=== PATIENT | female | born 1935 | race Caucasian/White ===

== ENCOUNTER → 2016-06-25 | Outpatient (CLI) | payer MEDICARE | END | disposition home or self-care (01) | LOC: CPPFTMAIN 11:37 | PROVIDERS: ATTEND Internal Medicine Clinical Cardiac Electrophysiology | DX: R06.02 Shortness of breath (principal); Z79.899 Other long term (current) drug therapy | CPT/HCPCS: 94060; 94726; 94729 ==

== ENCOUNTER 2017-09-10 11:19 | Emergency (ER) | payer MEDICARE ==
[2017-09-10] MEDS ORDERED: ASPIRIN 81 MG PO STA (11:25)
[2017-09-10] MEDS ORDERED: MORPHINE SULFATE/PF 10MG/10ML VL IVP STA (11:25)
[2017-09-10] MEDS ORDERED: ONDANSETRON 4 MG/2 ML VIAL IVP STA (11:25)
[2017-09-10] MEDS ORDERED: SODIUM CHLORIDE 0.9% 1,000 ML IV STA (11:25)
[2017-09-10] MEDS ORDERED: NITROGLYCERIN OINT 1 INCH/GM PACKET TOPICAL STA (11:25)
[2017-09-10 11:29] VITALS: RESP 18
[2017-09-10 11:42] LABS: Basophils % (A) 1 %; Eosinophils # (A) 0.1 k/uL (0-0.7); Eosinophils % (A) 2 %; HCT 33.7 % (34.0-46.0); HGB 11.4 gm/dL (11.4-16.0); Lymphocytes # (A) 1.1 k/uL (1.0-4.8); Lymphocytes % (A) 23 %; MCH 31.2 pg (25.0-35.0); MCHC 33.7 g/dL (31.0-37.0); MCV 92.5 fL (80.0-100.0); Mean Platelet Volume 7.1; Monocytes # (A) 0.4 k/uL (0-1.0); Monocytes % (A) 8 %; Neutrophils # (A) 3.3 k/uL (1.3-7.7); Neutrophils % (A) 64 %; Platelet Count 258 k/uL (150-450); RBC 3.64 m/uL (3.80-5.40); RDW 12.4 % (11.5-15.5); WBC 5.1 k/uL (3.8-10.6)
[2017-09-10 11:51] LABS: INR 1.1 (<1.2); Partial Thromboplastin Time 25.7 sec (22.0-30.0); Prothrombin Time 10.7 sec (9.0-12.0)
--- NOTE | 2017-09-10 11:53 | XR ---
EXAMINATION TYPE: XR chest 2V DATE OF EXAM: 09/10/2017 COMPARISON: 06/15/2016 HISTORY: Dizziness, shortness of breath, and weakness TECHNIQUE: Frontal and lateral views of the chest are obtained. FINDINGS: There is no focal air space opacity, pleural effusion, or pneumothorax seen. Right hemidia phragm eventration is incidentally noted. There is pulmonary hyperinflation and biapical lucency comp atible with underlying COPD. Platelike left basilar subsegmental atelectasis is seen. Remainder the l ungs are clear. The cardiac silhouette size is within normal limits. The osseous structures are int act. Cardiac loop recorder is incidentally noted. Mild multilevel degenerative changes of the thoraci c spine and diffuse osseous demineralization are seen. Degenerative changes of the left lateral humer al joint and acromio clavicular joints are mild. IMPRESSION: Left basilar subsegmental atelectasis. No other acute cardiopulmonary process. Radiograp hic sequela of COPD.
[2017-09-10 11:57] LABS: Albumin 3.6 g/dL (3.5-5.0); Calcium 8.8 mg/dL (8.4-10.2); Potassium 4.9 mmol/L (3.5-5.1); Total Bilirubin 0.4 mg/dL (0.2-1.3); Total Protein 6.3 g/dL (6.3-8.2)
[2017-09-10 12:04] LABS: Creatine Kinase 295 U/L (30-135)
[2017-09-10 12:17] LABS: Troponin I <0.012 ng/mL (0.000-0.034)
--- NOTE | 2017-09-10 15:40 | ED ---
Chest Pain HPI - General Chief Complaint: Chest Pain Stated Complaint: chest pain Time Seen by Provider: 09/10/17 11:22 Source: EMS Mode of arrival: EMS Limitations: no limitations - History of Present Illness Initial Comments: 82 years old female comes in with a chest pain, she woke up this morning she was fine she had her breakfast then she developed chest pain this pain lasted for good 45 minutes it's behind the left shoulder but then he moved to to the area behind the left breast she was quite short winded at that time she was swelling and pain is quite severe on arrival pain has resolved to the largest extent pain radiating there was a / denies any pleuritic chest pain and she is on a blood thinners she said she is on blood thinners. He denies any headaches no neck stiffness no abdominal pain no frequency urgency dysuria no signs of TIA or CVA - Related Data Home Medications Medication Instructions Recorded Confirmed Cetirizine HCl [Zyrtec] 10 mg PO DAILY@0900 02/01/15 09/10/17 Lisinopril [Prinivil] 20 mg PO DAILY@1200 02/01/15 09/10/17 Rivaroxaban [Xarelto] 20 mg PO DAILY@1800 02/01/15 09/10/17 Amiodarone [Cordarone] 100 mg PO DAILY@0900 03/20/15 09/10/17 Atorvastatin [Lipitor] 40 mg PO DAILY@1800 06/27/15 09/10/17 Metoprolol Succinate (ER) [Toprol 25 mg PO BID@0600,1800 06/15/16 09/10/17 Xl] Aspirin EC [Ecotrin Low Dose] 81 mg PO DAILY@0900 09/10/17 09/10/17 Calcium Carbonate/Vitamin D3 1 tab PO DAILY@0900 09/10/17 09/10/17 [Calcium 600-Vit D3 400 Tablet] Losartan Potassium [Cozaar] 50 mg PO HS@199909/10/17 09/10/17 Vit C/E/Zn/Coppr/Lutein/Zeaxan 1 cap PO BID@0900,1800 09/10/17 09/10/17 [Preservision Areds 2 Softgel] Allergies Allergy/AdvReac Type Severity Reaction Status Date / Time ibuprofen AdvReac stomach Verified 09/10/17 11:46 upset Review of Systems ROS Statement: Those systems with pertinent positive or pertinent negative responses have been documented in the HPI. ROS Other: All systems not noted in ROS Statement are negative. EKG Findings - EKG Comments: EKG Findings:: EKG is normal sinus rhythm ventricular rate is 60 MT interval is 206 QT QRS duration is 92 QT/QTc is 438/438 review of this EKG does not reveal any ST elevation or ST depression noticed some artifacts in lead V6 Past Medical History Past Medical History: Atrial Fibrillation, Hyperlipidemia, Hypertension Additional Past Medical History / Comment(s): SEE DR MONAE'S H&P History of Any Multi-Drug Resistant Organisms: None Reported Past Surgical History: Heart Catheterization, Hysterectomy Additional Past Surgical History / Comment(s): JÚNIOR CATARACTS, JÚNIOR EYELID SX, Past Anesthesia/Blood Transfusion Reactions: No Reported Reaction Additional Past Anesthesia/Blood Transfusion Reaction / Comment(s): Pt has never recieved blood. Past Psychological History: No Psychological Hx Reported Smoking Status: Former smoker Past Alcohol Use History: None Reported Past Drug Use History: None Reported - Past Family History Mother Additional Family Medical History / Comment(s): CARDIAC PROBLEMS Father Additional Family Medical History / Comment(s): CARDIAC PROBLEMS General Exam - General Exam Comments Initial Comments: General: The patient is awake and alert, in no distress, and does not appear acutely ill. Skin: Skin is warm and dry and no rashes or lesions are noted. Eye: Pupils are equal, round and reactive to light, extra-ocular movements are intact; there is normal conjunctiva bilaterally. Ears, nose, mouth and throat: There are moist mucous membranes and no oral lesions. Neck: The neck is supple, there is no tenderness or JVD. Cardiovascular: There is a regular rate and rhythm. No murmur, rub or gallop is appreciated. Respiratory: To auscultation bilateral, exam consistent with a mild COPD Gastrointestinal: Soft, non-distended, non-tender abdomen without masses or organomegaly noted. There is no rebound or guarding present. Bowel sounds are unremarkable. Back: There is no tenderness to palpation in the midline. There is no obvious deformity. Musculoskeletal: Normal ROM, no tenderness, There is no pedal edema. There is no calf tenderness or swelling. No cords were appreciated. Neurological: CN II-XII intact, Cranial nerves III through XII are intact. There are no obvious motor or sensory deficits. Coordination appears grossly intact. Speech is normal. Psychiatric: Cooperative, appropriate mood & affect, normal judgment. Limitations: no limitations Course Vital Signs 09/10/17 09/10/17 09/10/17 11:22 12:01 13:12 Temperature 97.8 F Pulse Rate 62 52 L 56 L Respiratory 18 18 18 Rate Blood Pressure 177/79 142/68 113/59 O2 Sat by Pulse 96 97 98 Oximetry 09/10/17 14:39 Temperature Pulse Rate 57 L Respiratory 18 Rate Blood Pressure 122/59 O2 Sat by Pulse 96 Oximetry She is reassessed, reassessed she is pain-free EKG, troponin, compressive metabolic panel, CBC are unremarkable chest x-rays consistent with a COPD considering this is 82 and quite a few risk factors were discussed with Dr. Rojas, Dr. Rojas advised that she could follow-up with him as outpatient Disposition Clinical Impression: Chest pain Disposition: HOME SELF-CARE Condition: Good Instructions: Chest Pain (ED) Referrals: Rowdy Rojas MD [Primary Care Provider] - 1-2 days
[2017-09-10] MEDS ORDERED: LISINOPRIL 20 MG TAB PO STA (15:53)
[2017-09-10 16:06] VITALS: BP 126/70; PULSE 59; TEMP 97
== END 2017-09-10 16:28 | disposition home or self-care (01) ==
LOC: EC 11:19
DX: R07.9 Chest pain, unspecified (principal); I48.91 Unspecified atrial fibrillation; E78.5 Hyperlipidemia, unspecified; I10 Essential (primary) hypertension; Z95.818 Presence of other cardiac implants and grafts; Z87.891 Personal history of nicotine dependence; Z79.82 Long term (current) use of aspirin; Z79.899 Other long term (current) drug therapy; Z79.01 Long term (current) use of anticoagulants; Z88.6 Allergy status to analgesic agent; Z53.8 Procedure and treatment not carried out for other reasons
CPT/HCPCS: 36415; 71046; 80053; 82550; 82553; 83735; 84484; 85025; 85610; 85730; 93005; 96360; 96361; 99285

== ENCOUNTER 2017-10-06 10:20 | Emergency (ER) | payer MEDICARE ==
[2017-10-06 10:25] VITALS: TEMP 97.1
[2017-10-06] MEDS ORDERED: SODIUM CHLORIDE 0.9% 500 ML IV STA (10:49)
--- NOTE | 2017-10-06 11:19 | ED ---
General Adult HPI - General Chief complaint: Dizziness Stated complaint: A FIB problem Time Seen by Provider: 10/06/17 10:48 Source: patient, RN notes reviewed, old records reviewed Mode of arrival: wheelchair Limitations: physical limitation - History of Present Illness Initial comments: 82-year-old female presenting with light headedness, and seeing stars in her left thigh. Patient felt generally weak, no focal weakness or numbness. She states she saw some around a low-dose only in her left eye. She does have history of retinal occlusion, she sees a retinal specialist. She has been told in the past that she has had TIAs. She denies any chest pain with this episode , she did have some dyspnea. No abdominal pain or vomiting. Mild nausea. She did not eat breakfast today. Prior to today she was doing well, eating and drinking normally. Her visual symptoms are resolved at the time my evaluation. Denies focal weakness or numbness. - Related Data Home Medications Medication Instructions Recorded Confirmed Cetirizine HCl [Zyrtec] 10 mg PO -BRKFST 02/01/15 10/06/17 Lisinopril [Prinivil] 20 mg PO DAILY@1200 02/01/15 10/06/17 Rivaroxaban [Xarelto] 20 mg PO DAILY@1800 02/01/15 10/06/17 Amiodarone [Cordarone] 100 mg PO -BRKFST 03/20/15 10/06/17 Atorvastatin [Lipitor] 40 mg PO DAILY@1800 06/27/15 10/06/17 Metoprolol Succinate (ER) [Toprol 25 mg PO BID@0600,1800 06/15/16 10/06/17 Xl] Aspirin EC [Ecotrin Low Dose] 81 mg PO AC-BRKFST 09/10/17 10/06/17 Calcium Carbonate/Vitamin D3 1 tab PO Q48H 09/10/17 10/06/17 [Calcium 600-Vit D3 400 Tablet] Losartan Potassium [Cozaar] 50 mg PO HS@199909/10/17 10/06/17 Vit C/E/Zn/Coppr/Lutein/Zeaxan 1 cap PO BID@0800,1800 09/10/17 10/06/17 [Preservision Areds 2 Softgel] Cephalexin [Keflex] 500 mg PO TID@06,14,10/06/17 10/06/17 Allergies Allergy/AdvReac Type Severity Reaction Status Date / Time adhesive tape AdvReac Rash/Hives Verified 10/06/17 11:45 ibuprofen AdvReac stomach Verified 10/06/17 11:45 upset Review of Systems ROS Statement: Those systems with pertinent positive or pertinent negative responses have been documented in the HPI. ROS Other: All systems not noted in ROS Statement are negative. Past Medical History Past Medical History: Atrial Fibrillation, Hyperlipidemia, Hypertension Additional Past Medical History / Comment(s): SEE DR MONAE'S H&P History of Any Multi-Drug Resistant Organisms: None Reported Past Surgical History: Heart Catheterization, Hysterectomy Additional Past Surgical History / Comment(s): JÚNIOR CATARACTS, JÚNIOR EYELID SX, Past Anesthesia/Blood Transfusion Reactions: No Reported Reaction Additional Past Anesthesia/Blood Transfusion Reaction / Comment(s): Pt has never recieved blood. Past Psychological History: No Psychological Hx Reported Smoking Status: Former smoker Past Alcohol Use History: None Reported Past Drug Use History: None Reported - Past Family History Mother Additional Family Medical History / Comment(s): CARDIAC PROBLEMS Father Additional Family Medical History / Comment(s): CARDIAC PROBLEMS General Exam Limitations: physical limitation General appearance: alert, in no apparent distress Head exam: Present: atraumatic, normocephalic Eye exam: Present: normal appearance, PERRL, EOMI ENT exam: Present: mucous membranes dry Neck exam: Present: normal inspection. Absent: tenderness, meningismus Respiratory exam: Present: normal lung sounds bilaterally. Absent: respiratory distress, wheezes Cardiovascular Exam: Present: regular rate, normal rhythm Extremities exam: Present: normal inspection, normal capillary refill. Absent: pedal edema, calf tenderness Neurological exam: Present: alert, oriented X3, CN II-XII intact. Absent: motor sensory deficit Psychiatric exam: Present: normal affect, normal mood Skin exam: Present: warm, dry, intact. Absent: cyanosis, diaphoretic Course Vital Signs 10/06/17 10/06/17 10/06/17 10:22 11:01 12:00 Temperature 97.1 F L Pulse Rate 74 66 67 Respiratory 18 16 16 Rate Blood Pressure 124/69 154/74 136/73 O2 Sat by Pulse 99 97 97 Oximetry 10/06/17 10/06/17 12:48 14:01 Temperature Pulse Rate 68 71 Respiratory 16 18 Rate Blood Pressure 156/72 124/59 O2 Sat by Pulse 100 99 Oximetry EKG Findings - EKG Comments: EKG Findings:: EKG: Normal sinus rhythm, ventricular rate 61, KY interval 192, QRS duration 86, QTC 426, no ST segment elevation Medical Decision Making - Medical Decision Making 82-year-old female presenting with multiple complaints including vision changes in her left eye, dyspnea, and concern she is in A. fib. 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 Patient does follow with a retinal specialist. She hasn't appointment in approximately one week. Her visual symptoms have completely resolved prior to arrival. Vitals remained stable, she remains in normal sinus rhythm. Laboratory studies reveal normal CBC, electrolytes do reveal potassium of 5.8. This is repeated and is 4.4 without treatment. Case is discussed with the patient's primary care physician Dr. Rojas who is very familiar with the patient, he is okay with outpatient workup. I did discuss findings with the patient's nurse from her cardiology office Dr. Erickson [place] office. She is also comfortable with outpatient follow-up. Patient will maintain her appointment with her retinal specialist, she will follow-up with her primary care physician in the next several days. Her symptoms remained resolved while in the emergency department. Both her and her are comfortable with this plan. - Lab Data Result diagrams: 10/06/17 11:00 10/06/17 14:18 Lab Results 10/06/17 10/06/17 10/06/17 Range/Units 11:00 11:00 11:00 WBC 6.8 (3.8-10.6) k/uL RBC 4.06 (3.80-5.40) m/uL Hgb 12.5 (11.4-16.0) gm/dL Hct 37.6 (34.0-46.0) % MCV 92.7 (80.0-100.0) fL MCH 30.9 (25.0-35.0) pg MCHC 33.4 (31.0-37.0) g/dL RDW 12.5 (11.5-15.5) % Plt Count 299 (150-450) k/uL Neutrophils % 76 % Lymphocytes % 13 % Monocytes % 9 % Eosinophils % 1 % Basophils % 0 % Neutrophils # 5.2 (1.3-7.7) k/uL Lymphocytes # 0.9 L (1.0-4.8) k/uL Monocytes # 0.6 (0-1.0) k/uL Eosinophils # 0.0 (0-0.7) k/uL Basophils # 0.0 (0-0.2) k/uL PT (9.0-12.0) sec INR (<1.2) APTT (22.0-30.0) sec Sodium 137 (137-145) mmol/L Potassium 5.8 H (3.5-5.1) mmol/L Chloride 103 (98-107) mmol/L Carbon Dioxide 23 (22-30) mmol/L Anion Gap 11 mmol/L BUN 18 H (7-17) mg/dL Creatinine 0.80 (0.52-1.04) mg/dL Est GFR (CKD-EPI)AfAm 79 (>60 ml/min/1.73 sqM) Est GFR (CKD-EPI)NonAf 69 (>60 ml/min/1.73 sqM) Glucose 107 H (74-99) mg/dL Calcium 9.9 (8.4-10.2) mg/dL Magnesium 2.1 (1.6-2.3) mg/dL Total Bilirubin 0.4 (0.2-1.3) mg/dL AST 29 (14-36) U/L ALT 32 (9-52) U/L Alkaline Phosphatase 76 (38-126) U/L Total Creatine Kinase 116 (30-135) U/L CK-MB (CK-2) 2.2 (0.0-2.4) ng/mL CK-MB (CK-2) Rel Index 1.9 Troponin I <0.012 (0.000-0.034) ng/mL Total Protein 6.8 (6.3-8.2) g/dL Albumin 3.9 (3.5-5.0) g/dL 10/06/17 10/06/17 Range/Units 11:00 14:18 WBC (3.8-10.6) k/uL RBC (3.80-5.40) m/uL Hgb (11.4-16.0) gm/dL Hct (34.0-46.0) % MCV (80.0-100.0) fL MCH (25.0-35.0) pg MCHC (31.0-37.0) g/dL RDW (11.5-15.5) % Plt Count (150-450) k/uL Neutrophils % % Lymphocytes % % Monocytes % % Eosinophils % % Basophils % % Neutrophils # (1.3-7.7) k/uL Lymphocytes # (1.0-4.8) k/uL Monocytes # (0-1.0) k/uL Eosinophils # (0-0.7) k/uL Basophils # (0-0.2) k/uL PT 10.7 (9.0-12.0) sec INR 1.1 (<1.2) APTT 25.1 (22.0-30.0) sec Sodium (137-145) mmol/L Potassium 4.4 (3.5-5.1) mmol/L Chloride (98-107) mmol/L Carbon Dioxide (22-30) mmol/L Anion Gap mmol/L BUN (7-17) mg/dL Creatinine (0.52-1.04) mg/dL Est GFR (CKD-EPI)AfAm (>60 ml/min/1.73 sqM) Est GFR (CKD-EPI)NonAf (>60 ml/min/1.73 sqM) Glucose (74-99) mg/dL Calcium (8.4-10.2) mg/dL Magnesium (1.6-2.3) mg/dL Total Bilirubin (0.2-1.3) mg/dL AST (14-36) U/L ALT (9-52) U/L Alkaline Phosphatase (38-126) U/L Total Creatine Kinase (30-135) U/L CK-MB (CK-2) (0.0-2.4) ng/mL CK-MB (CK-2) Rel Index Troponin I (0.000-0.034) ng/mL Total Protein (6.3-8.2) g/dL Albumin (3.5-5.0) g/dL Disposition Clinical Impression: Orthostatic hypotension Disposition: HOME SELF-CARE Condition: Fair Instructions: Hypotension (ED) Is patient prescribed a controlled substance at discharge?: No Referrals: Rowdy Rojas MD [Primary Care Provider] - 1-2 days Time of Disposition: 14:30
[2017-10-06 11:20] LABS: INR 1.1 (<1.2); Partial Thromboplastin Time 25.1 sec (22.0-30.0); Prothrombin Time 10.7 sec (9.0-12.0)
[2017-10-06 11:22] LABS: Basophils % (A) 0 %; Eosinophils % (A) 1 %; HCT 37.6 % (34.0-46.0); HGB 12.5 gm/dL (11.4-16.0); Lymphocytes # (A) 0.9 k/uL (1.0-4.8); Lymphocytes % (A) 13 %; MCH 30.9 pg (25.0-35.0); MCHC 33.4 g/dL (31.0-37.0); MCV 92.7 fL (80.0-100.0); Mean Platelet Volume 7.2; Monocytes # (A) 0.6 k/uL (0-1.0); Monocytes % (A) 9 %; Neutrophils # (A) 5.2 k/uL (1.3-7.7); Neutrophils % (A) 76 %; Platelet Count 299 k/uL (150-450); RBC 4.06 m/uL (3.80-5.40); RDW 12.5 % (11.5-15.5); WBC 6.8 k/uL (3.8-10.6)
[2017-10-06 11:25] LABS: Albumin 3.9 g/dL (3.5-5.0); Calcium 9.9 mg/dL (8.4-10.2); Magnesium 2.1 mg/dL (1.6-2.3); Potassium 5.8 mmol/L (3.5-5.1); Total Bilirubin 0.4 mg/dL (0.2-1.3); Total Protein 6.8 g/dL (6.3-8.2)
[2017-10-06 11:43] LABS: Creatine Kinase 116 U/L (30-135)
--- NOTE | 2017-10-06 11:46 | CT ---
EXAMINATION TYPE: CT brain wo con DATE OF EXAM: 10/06/2017 COMPARISON: 03/20/2015 HISTORY: 82-year-old female with pain, complains of confusion, dizziness, and visual disturbance. TECHNIQUE: Examination was done in axial plane without intravenous contrast. Coronal and sagittal r econstructions performed. CT DLP: 999 mGycm Automated exposure control for dose reduction was used. FINDINGS: There is no evidence of acute intracranial hemorrhage, acute ischemic changes, mass, mass-effect, or extra-axial fluid collection. There is no effacement of cerebral sulci or basal subarachnoid cister ns. There is no hydrocephalus. There is no midline shift. Vines-white matter distinction is preserv ed. Mild generalized supratentorial volume loss with moderate patchy white matter hypodensities in both c erebral hemispheres. Visualized orbits and globes are intact. Visualized paranasal sinuses and mastoid air cells well pneu matized. IMPRESSION: No acute intracranial abnormality seen. Mild atrophy and moderate changes of chronic small vessel isc hemic disease.
[2017-10-06 11:56] LABS: Troponin I <0.012 ng/mL (0.000-0.034)
--- NOTE | 2017-10-06 11:57 | XR ---
EXAMINATION TYPE: XR chest 2V DATE OF EXAM: 10/06/2017 COMPARISON: 09/10/2017 HISTORY: 82-year-old female with syncope TECHNIQUE: Frontal and lateral views FINDINGS: A loop recorder is present on the left. Heart normal size. Atherosclerotic arch calcifications. Stabl e density at the right heart margin suggesting epicardial fat pad. Some subtle nodularity right upper lung. No consolidation or pleural effusion seen. IMPRESSION: 1. No acute cardiopulmonary process. 2. Some subtle nodularity in the right upper lung could represent summation artifact. Nonemergent fol low-up CT chest can exclude an underlying pulmonary nodule.
[2017-10-06 12:09] LABS: Creatine Kinase MB 2.2 ng/mL (0.0-2.4)
[2017-10-06] MEDS ORDERED: SODIUM CHLORIDE 0.9% 500 ML IV ONE (12:29)
[2017-10-06] MEDS ORDERED: ONDANSETRON 2 MG/1 ML 20 ML (MDV) VIAL IV ONE (12:33)
[2017-10-06] MEDS ORDERED: ASPIRIN 325 MG TAB PO STA (12:39)
[2017-10-06] MEDS ORDERED: LORazepam 2 MG/ML INJ IV STA (12:44)
[2017-10-06] MEDS ORDERED: SODIUM CHLORIDE 0.9% 1,000 ML IV SCH (12:45)
[2017-10-06 14:01] VITALS: RESP 18
[2017-10-06 15:20] VITALS: BP 127/63; PULSE 65
== END 2017-10-06 15:15 | disposition home or self-care (01) ==
LOC: EC 10:20
DX: I95.1 Orthostatic hypotension (principal); H53.9 Unspecified visual disturbance; E78.5 Hyperlipidemia, unspecified; I48.91 Unspecified atrial fibrillation; I10 Essential (primary) hypertension; Z87.891 Personal history of nicotine dependence; Z79.01 Long term (current) use of anticoagulants; Z79.82 Long term (current) use of aspirin; Z79.899 Other long term (current) drug therapy; Z88.6 Allergy status to analgesic agent; Z91.048 Other nonmedicinal substance allergy status; Z98.890 Other specified postprocedural states; Z86.73 Personal history of transient ischemic attack (TIA), and cerebral infarction without residual deficits; Z95.9 Presence of cardiac and vascular implant and graft, unspecified; Z82.49 Family history of ischemic heart disease and other diseases of the circulatory system
CPT/HCPCS: 36415; 93005; 80053; 82550; 82553; 83735; 84132; 84484; 85025; 85610; 85730; 71046; 70450; 99285; 96374; 96375; 96361 ×4; J2060; J2405; 96365

== ENCOUNTER → 2019-04-20 | Outpatient (CLI) | payer MEDICARE ==
--- NOTE | 2019-04-20 16:11 | BD ---
EXAMINATION TYPE: Axial Bone Density DATE OF EXAM: 04/20/2019 COMPARISON: 04.25.2009 CLINICAL HISTORY: 83 YR OLD FEMALE....ICD-10 CODE: M85.80 OTHER SPECIFIED DISORDERS OF BONE Height: 61.8 Weight: 165 FRAX RISK QUESTIONS: History of Fracture in Adulthood: YES RISK FACTORS HISTORY OF: YES, FOOT FRACTURE AFTER AGE 49, HAD TO WEAR A BOOT Postmenopausal woman: YES, MID 40'S, WITH HYST. Hyperparathyroidism: NO Adrenal Insufficiency: NO MEDICATIONS: Additional Medications: BP MEDS, ZOLOFT, STATIN FOR CHOLESTEROL, NO CALCIUM OR VIT D LATELY Additional History: HYPERTENSION, ANXIETY, CHOLESTEROL, EXAM MEASUREMENTS: Bone mineral densitometry was performed using the [employer]. Bone mineral density as measured about the Lumbar spine is: ----- L1-L4(G/cm2): 1.466 T Score Values are as follows: ----- L1: 1.9 ----- L2: 3.5 ----- L3: 1.8 ----- L4: 2.2 ----- L1-L4: 2.4 Bone mineral density has: Increased 11.9% since study of: 04.25.2009 Bone mineral density about the R hip (g/cm2): 0.833 Bone mineral density about the L hip (g/cm2): 0.887 T Score values are as follows: -----R Neck: -2.3 -----L Neck: -1.7 -----R Total: -1.4 -----L Total: -1.0 Bone mineral density has: Decreased -8.3% since study of: 04.25.2009 FRAX%s: THERE IS A 24.1% CHANCE FOR A MAJOR OSTEOPOROTIC FX AND A 7.3% FOR HIP.....PROBABILITY FOR FX IN 10 YR TIME IMPRESSION: Osteopenia (T Score between -2.5 and -1). There is slightly increased risk of fracture and the patient may be considered for treatment. Re-Screen 2-5 years. NOTE: T-SCORE=SD OF THE YOUNG ADULT MEAN.
== END | disposition home or self-care (01) ==
LOC: RADBDWWP 15:49
PROVIDERS: ATTEND Internal Medicine
DX: M85.88 Other specified disorders of bone density and structure, other site (principal)
CPT/HCPCS: 77080

== ENCOUNTER → 2020-04-06 | Outpatient (CLI) | payer MEDICARE | END | disposition home or self-care (01) | LOC: LABWHC1 12:44 | PROVIDERS: ATTEND Internal Medicine | DX: Z03.818 Encounter for observation for suspected exposure to other biological agents ruled out (principal) | CPT/HCPCS: U0003; C9803 ==

== ENCOUNTER → 2020-05-24 | Outpatient (CLI) | payer MEDICARE | END | disposition home or self-care (01) | LOC: LABWHC1 12:09 | PROVIDERS: ATTEND Internal Medicine | DX: Z03.818 Encounter for observation for suspected exposure to other biological agents ruled out (principal); Z20.828 Contact with and (suspected) exposure to other viral communicable diseases | CPT/HCPCS: U0003; C9803 ==

== ENCOUNTER 2023-05-29 13:40 | Emergency (ER) | payer MEDICARE ==
[2023-05-29 14:15] VITALS: TEMP 97.5
--- NOTE | 2023-05-29 14:38 | ED ---
Dizziness HPI - General Source: patient, RN notes reviewed Mode of arrival: ambulatory Limitations: no limitations <Estevan Thibodeaux - Last Filed: 05/29/23 14:36> <Carson Jose - Last Filed: 05/29/23 18:43> - General Chief Complaint: Dizziness Stated Complaint: sob Time Seen by Provider: 05/29/23 14:37 - History of Present Illness Initial Comments: 88-year-old female presents emergency Department chief complaint of dizziness. She will have this morning states that she has severe dizziness worse with movement. Patient states room spins a pechanga. Patient states started dizziness the past but this is much worse than she's ever had. Patient denies any chest pain states she does have shortness of breath. Denies palpitations no fever cough or cold-like symptoms (Estevan Thibodeaux) This is an 88-year-old female presents emergency department stating that she woke up this morning and rolled out of bed and became very dizzy. Patient states with movement definitely gets worse. Patient states she had to hold onto things while she was walking. Patient states she's not had anything like this before. Patient denies any headache patient denies numbness or weakness. Patient denies any nausea. Patient states she has a baseline shortness of breath and she states to me that it is no worse than it is on any given day in fact she thinks it's a little better today. Patient states initially when she was dizzy she felt a little short of breath but she thinks she was also anxious that time. Patient denies any chest pain or palpitations per patient denies abdominal pain. (Carson Jose) - Related Data Home Medications Medication Instructions Recorded Confirmed Cetirizine HCl [Zyrtec] 10 mg PO -BRKFST 02/01/15 10/06/17 Rivaroxaban [Xarelto] 20 mg PO DAILY@1800 02/01/15 10/06/17 lisinopriL [Prinivil] 20 mg PO DAILY@1200 02/01/15 10/06/17 Amiodarone [Cordarone] 100 mg PO -BRKFST 03/20/15 10/06/17 Atorvastatin [Lipitor] 40 mg PO DAILY@1800 06/27/15 10/06/17 Metoprolol Succinate (ER) [Toprol 25 mg PO BID@0600,1800 06/15/16 10/06/17 Xl] Aspirin EC [Ecotrin Low Dose] 81 mg PO AC-BRKFST 09/10/17 10/06/17 Calcium Carbonate/Vitamin D3 1 tab PO Q48H 09/10/17 10/06/17 [Calcium 600-Vit D3 400 Tablet] Losartan Potassium [Cozaar] 50 mg PO HS@199909/10/17 10/06/17 Vit C/E/Zn/Coppr/Lutein/Zeaxan 1 cap PO BID@0800,1800 09/10/17 10/06/17 [Preservision Areds 2 Softgel] Cephalexin [Keflex] 500 mg PO TID@06,14,10/06/17 10/06/17 Previous Rx's Medication Instructions Recorded Meclizine [Antivert] 25 mg PO TID #20 tab 05/29/23 Allergies Allergy/AdvReac Type Severity Reaction Status Date / Time adhesive tape AdvReac Rash/Hives Verified 05/29/23 13:56 ibuprofen AdvReac stomach Verified 05/29/23 13:56 upset Review of Systems ROS Other: All systems not noted in ROS Statement are negative. <Estevan Thibodeaux - Last Filed: 05/29/23 14:36> ROS Other: All systems not noted in ROS Statement are negative. <Carson Jose - Last Filed: 05/29/23 18:43> ROS Statement: Those systems with pertinent positive or pertinent negative responses have been documented in the HPI. Past Medical History Past Medical History: Atrial Fibrillation, GERD/Reflux, Hyperlipidemia, Hypertension Additional Past Medical History / Comment(s): SEE DR MONAE'S H&P History of Any Multi-Drug Resistant Organisms: None Reported Past Surgical History: Heart Catheterization, Hysterectomy Additional Past Surgical History / Comment(s): JÚNIOR CATARACTS, JÚNIOR EYELID SX, Past Anesthesia/Blood Transfusion Reactions: No Reported Reaction Additional Past Anesthesia/Blood Transfusion Reaction / Comment(s): Pt has never recieved blood. Past Psychological History: Depression Past Alcohol Use History: None Reported Past Drug Use History: None Reported - Past Family History Mother Additional Family Medical History / Comment(s): CARDIAC PROBLEMS Father Additional Family Medical History / Comment(s): CARDIAC PROBLEMS <Estevan Thibodeaux - Last Filed: 05/29/23 14:36> General Exam Limitations: no limitations <Estevan Thibodeaux - Last Filed: 05/29/23 14:36> <Carson Jose - Last Filed: 05/29/23 18:43> - General Exam Comments Initial Comments: Visual Physical Exam Vital signs reviewed General: Well-appearing, nontoxic, no acute distress. Head: Normocephalic, atraumatic Eyes: PERRLA, EOMI ENT: Airway patent Chest: Nonlabored breathing Skin: No visual rash, normal skin tone Neuro: Alert and oriented 3 Musculoskeletal: No gross abnormalities (Estevan Thibodeaux) GENERAL: Patient is well-developed and well-nourished. Patient is nontoxic and well- hydrated and is in mild distress. ENT: Neck is soft and supple. No significant lymphadenopathy is noted. Oropharynx is clear. Moist mucous membranes. Neck has full range of motion without eliciting any pain. EYES: The sclera were anicteric and conjunctiva were pink and moist. Extraocular movements were intact and pupils were equal round and reactive to light. Eyelids were unremarkable. PULMONARY: Unlabored respirations. Good breath sounds bilaterally. No audible rales rhonchi or wheezing was noted. CARDIOVASCULAR: There is a regular rate and rhythm without any murmurs gallops or rubs. ABDOMEN: Soft and nontender with normal bowel sounds. SKIN: Skin is clear with no lesions or rashes and otherwise unremarkable. NEUROLOGIC: Patient is alert and oriented x3. Cranial nerves II through XII are grossly intact. Motor and sensory are also intact. Normal speech, volume and content. Symmetrical smile. Finger to nose testing was normal MUSCULOSKELETAL: Normal extremities with adequate strength and full range of motion. LYMPHATICS: No significant lymphadenopathy is noted PSYCHIATRIC: Normal psychiatric evaluation. (Carson Jose) Course Vital Signs 05/29/23 05/29/23 05/29/23 13:56 16:38 18:31 Temperature 97.5 F L 97.5 F L Pulse Rate 80 80 72 Respiratory 18 20 18 Rate Blood Pressure 119/78 119/73 144/84 O2 Sat by Pulse 98 99 99 Oximetry Medical Decision Making <Estevan Thibodeaux Julia - Last Filed: 05/29/23 14:36> - Lab Data Result diagrams: 05/29/23 14:44 05/29/23 14:44 <Carson Jose - Last Filed: 05/29/23 18:43> - Medical Decision Making I completed the quick note portion of this chart signed Estevan Thibodeaux PA-C (Estevan Thibodeaux) EKG shows electronically paced rhythm at 72 bpm QRS is 178 QT interval 365 QTC is 489. Patient's EKG shows no ST segment elevation. Was pt. sent in by a medical professional or institution (, [facility], BROADCAST ENGINEER, urgent care, hospital, or fci...) When possible be specific @ -No Did you speak to anyone other than the patient for history (EMS, parent, family, police, friend...)? What history was obtained from this source @ -No Did you review nursing and triage notes (agree or disagree)? Why? @ -I reviewed and agree with nursing and triage notes Were old charts reviewed (outside hosp., previous admission, EMS record, old EKG, old radiological studies, urgent care reports/EKG's, fci records)? Report findings @ -I reviewed prior charts and prior laboratory results on this patient Differential Diagnosis (chest pain, altered mental status, abdominal pain women, abdominal pain men, vaginal bleeding, weakness, fever, dyspnea, syncope, headache, dizziness, GI bleed, back pain, seizure, CVA, palpatations, mental health, musculoskeletal)? @ -Differential Dizziness: Benign paroxysmal positional Vertigo, Menieres disease, otitis media, acoustic neuroma, vertebrobasilar insufficiency, cerebellar stroke, encephalitis, hypovolemic, arrhythmia, coronary artery syndrome, anemia, this is not meant to be an all-inclusive list EKG interpreted by me (3pts min.). @ -As above X-rays interpreted by me (1pt min.). @ -None done CT interpreted by me (1pt min.). @ -CT of the brain shows no acute abnormality U/S interpreted by me (1pt. min.). @ -None done What testing was considered but not performed or refused? (CT, X-rays, U/S, labs)? Why? @ -None What meds were considered but not given or refused? Why? @ -None Did you discuss the management of the patient with other professionals (professionals i.e. , [facility], BROADCAST ENGINEER, lab, RT, psych nurse, child welfare social worker, business continuity strategy director, teacher, fare enforcement officer, pillowcase sewer)? Give summary @ -No Was smoking cessation discussed for >3mins.? @ -No Was critical care preformed (if so, how long)? @ -No Were there social determinants of health that impacted care today? How? (Homelessness, low income, unemployed, alcoholism, drug addiction, transportation, low edu. Level, literacy, decrease access to med. care, retirement, rehab)? @ -No Was there de-escalation of care discussed even if they declined (Discuss DNR or withdrawal of care, Hospice)? DNR status @ -No What co-morbidities impacted this encounter? (DM, HTN, Smoking, COPD, CAD, Cancer, CVA, ARF, Chemo, Hep., AIDS, mental health diagnosis, sleep apnea, morbid obesity)? @ -None Was patient admitted / discharged? Hospital course, mention meds given and route , prescriptions, significant lab abnormalities, going to OR and other pertinent info. @ -Given Valium and Antivert for the vertigo. Patient was feeling better and was able to get up and move around and feel comfortable enough to go home. Undiagnosed new problem with uncertain prognosis? @ -No Drug Therapy requiring intensive monitoring for toxicity (Heparin, Nitro, Insulin, Cardizem)? @ -No Were any procedures done? @ -No Diagnosis/symptom? @ -Vertigo Acute, or Chronic, or Acute on Chronic? @ -Acute Uncomplicated (without systemic symptoms) or Complicated (systemic symptoms)? @ -Complicated Side effects of treatment? @ -No Exacerbation, Progression, or Severe Exacerbation? @ -No Poses a threat to life or bodily function? How? (Chest pain, USA, VT, pneumonia, PE, COPD, DKA, ARF, appy, cholecystitis, CVA, Diverticulitis, Homicidal, Suicidal, threat to staff... and all critical care pts) @ -No (Carson Jose) - Lab Data Lab Results 05/29/23 05/29/23 05/29/23 Range/Units 14:44 14:44 14:44 WBC 4.7 (3.8-10.6) k/uL RBC 3.72 L (3.80-5.40) m/uL Hgb 12.2 (11.4-16.0) gm/dL Hct 36.3 (34.0-46.0) % MCV 97.7 (80.0-100.0) fL MCH 32.8 (25.0-35.0) pg MCHC 33.6 (31.0-37.0) g/dL RDW 12.4 (11.5-15.5) % Plt Count 218 (150-450) k/uL MPV 7.5 Neutrophils % 64 % Lymphocytes % 25 % Monocytes % 6 % Eosinophils % 3 % Basophils % 1 % Neutrophils # 3.0 (1.3-7.7) k/uL Lymphocytes # 1.2 (1.0-4.8) k/uL Monocytes # 0.3 (0-1.0) k/uL Eosinophils # 0.1 (0-0.7) k/uL Basophils # 0.0 (0-0.2) k/uL PT 11.5 (10.0-12.5) sec INR 1.1 (<1.2) APTT 27.1 (22.0-30.0) sec Sodium 136 L (137-145) mmol/L Potassium 4.5 (3.5-5.1) mmol/L Chloride 101 (98-107) mmol/L Carbon Dioxide 24 (22-30) mmol/L Anion Gap 11 mmol/L BUN 20 H (7-17) mg/dL Creatinine 0.68 (0.52-1.04) mg/dL Est GFR (CKD-EPI)AfAm 90 (>60 ml/min/1.73 sqM) Est GFR (CKD-EPI)NonAf 78 (>60 ml/min/1.73 sqM) Glucose 102 H (74-99) mg/dL Calcium 8.9 (8.4-10.2) mg/dL Total Bilirubin 0.6 (0.2-1.3) mg/dL AST 31 (14-36) U/L ALT 20 (4-34) U/L Alkaline Phosphatase 66 (38-126) U/L Troponin I (0.000-0.034) ng/mL Total Protein 6.8 (6.3-8.2) g/dL Albumin 3.9 (3.5-5.0) g/dL 05/29/23 Range/Units 14:44 WBC (3.8-10.6) k/uL RBC (3.80-5.40) m/uL Hgb (11.4-16.0) gm/dL Hct (34.0-46.0) % MCV (80.0-100.0) fL MCH (25.0-35.0) pg MCHC (31.0-37.0) g/dL RDW (11.5-15.5) % Plt Count (150-450) k/uL MPV Neutrophils % % Lymphocytes % % Monocytes % % Eosinophils % % Basophils % % Neutrophils # (1.3-7.7) k/uL Lymphocytes # (1.0-4.8) k/uL Monocytes # (0-1.0) k/uL Eosinophils # (0-0.7) k/uL Basophils # (0-0.2) k/uL PT (10.0-12.5) sec INR (<1.2) APTT (22.0-30.0) sec Sodium (137-145) mmol/L Potassium (3.5-5.1) mmol/L Chloride (98-107) mmol/L Carbon Dioxide (22-30) mmol/L Anion Gap mmol/L BUN (7-17) mg/dL Creatinine (0.52-1.04) mg/dL Est GFR (CKD-EPI)AfAm (>60 ml/min/1.73 sqM) Est GFR (CKD-EPI)NonAf (>60 ml/min/1.73 sqM) Glucose (74-99) mg/dL Calcium (8.4-10.2) mg/dL Total Bilirubin (0.2-1.3) mg/dL AST (14-36) U/L ALT (4-34) U/L Alkaline Phosphatase (38-126) U/L Troponin I <0.012 (0.000-0.034) ng/mL Total Protein (6.3-8.2) g/dL Albumin (3.5-5.0) g/dL Disposition <Estevan Thibodeaux - Last Filed: 05/29/23 14:36> Is patient prescribed a controlled substance at d/c from ED?: No Time of Disposition: 18:42 <Carson Jose - Last Filed: 05/29/23 18:43> Clinical Impression: Vertigo Disposition: HOME SELF-CARE Condition: Good Instructions (If sedation given, give patient instructions): Vertigo (ED) Prescriptions: Meclizine [Antivert] 25 mg PO TID #20 tab Referrals: Vinny Parson MD [Primary Care Provider] - 1-2 days
[2023-05-29 14:55] LABS: Basophils % (A) 1 %; Eosinophils # (A) 0.1 k/uL (0-0.7); Eosinophils % (A) 3 %; HCT 36.3 % (34.0-46.0); HGB 12.2 gm/dL (11.4-16.0); Lymphocytes # (A) 1.2 k/uL (1.0-4.8); Lymphocytes % (A) 25 %; MCH 32.8 pg (25.0-35.0); MCHC 33.6 g/dL (31.0-37.0); MCV 97.7 fL (80.0-100.0); Mean Platelet Volume 7.5; Monocytes # (A) 0.3 k/uL (0-1.0); Monocytes % (A) 6 %; Neutrophils % (A) 64 %; Platelet Count 218 k/uL (150-450); RBC 3.72 m/uL (3.80-5.40); RDW 12.4 % (11.5-15.5); WBC 4.7 k/uL (3.8-10.6)
[2023-05-29 15:09] LABS: INR 1.1 (<1.2); Partial Thromboplastin Time 27.1 sec (22.0-30.0); Prothrombin Time 11.5 sec (10.0-12.5)
[2023-05-29 15:23] LABS: ALT 20 U/L (4-34); AST 31 U/L (14-36); African American GFR (CKD) 90 (>60 ml/min/1.73 sqM); Albumin 3.9 g/dL (3.5-5.0); Alkaline Phosphatase 66 U/L (38-126); Anion Gap 11 mmol/L; Blood Urea Nitrogen 20 mg/dL (7-17); Calcium 8.9 mg/dL (8.4-10.2); Carbon Dioxide 24 mmol/L (22-30); Chloride 101 mmol/L (98-107); Glucose 102 mg/dL (74-99); Non-African American GFR(CKD) 78 (>60 ml/min/1.73 sqM); Potassium 4.5 mmol/L (3.5-5.1); Sodium 136 mmol/L (137-145); Total Bilirubin 0.6 mg/dL (0.2-1.3); Total Protein 6.8 g/dL (6.3-8.2)
[2023-05-29] MEDS ORDERED: MECLIZINE 25 MG TAB PO STA (16:29)
--- NOTE | 2023-05-29 17:34 | CT ---
EXAMINATION TYPE: CT brain wo con DATE OF EXAM: 05/29/2023 HISTORY: SOB, dizziness. CT DLP: 1152.4 mGycm. Automated Exposure Control for Dose Reduction was Utilized. TECHNIQUE: CT scan of the head is performed without contrast. COMPARISON: None. FINDINGS: There is no skull fracture or acute intracranial hemorrhage or midline shift. No definite a cute attenuation defect. 66 Low-attenuation is seen diffusely throughout the centrum semiovale and padilla radiata bilaterally, no nspecific but usually reflecting small vessel ischemic change. The globes are intact and the visualized sinuses are clear. The left maxillary sinus is completely opacified, without associated mass effect or volume loss. Left ethmoid sinuses are opacified as well. These changes can correlate with a clinical diagnosis of left -sided sinusitis. Remainder of the paranasal sinuses, middle ear cavities, and mastoid sinus air cell s are clear. IMPRESSION: No definite acute process.
[2023-05-29 18:47] VITALS: BP 144/84; PULSE 72; RESP 18
== END 2023-05-29 18:55 | disposition home or self-care (01) ==
LOC: EC 13:40
DX: R42 Dizziness and giddiness (principal); I48.91 Unspecified atrial fibrillation; E78.5 Hyperlipidemia, unspecified; I10 Essential (primary) hypertension; Z79.82 Long term (current) use of aspirin; Z86.59 Personal history of other mental and behavioral disorders; Z79.01 Long term (current) use of anticoagulants; Z79.899 Other long term (current) drug therapy; Z88.6 Allergy status to analgesic agent; Z91.09 Other allergy status, other than to drugs and biological substances
CPT/HCPCS: 36415; 93005; 80053; 84484; 85025; 85610; 85730; 70450; 99285; 96374; J3360